=== PATIENT | female | born 1960 | race Hispanic/Latino ===

== ENCOUNTER → 2017-04-18 | Outpatient (CLI) | payer OTHER ==
[~2017-04-18] MED LIST: CITA20TA12 PO; ESTR1TAB24 PO; VALA100033 PO
== END ==
LOC: RAD 08:41
PROVIDERS: ATTEND Family Medicine
DX: Z12.31 Encounter for screening mammogram for malignant neoplasm of breast (principal)
CPT/HCPCS: 77067

== ENCOUNTER → 2018-05-21 | Outpatient (CLI) | payer OTHER ==
--- NOTE | 2018-05-21 13:08 | Diagnostic Imaging Report ---
INDICATION: Routine screening. Comparison is made with prior mammograms from 04/18/2017 and 04/05/2016. 2-D and 3-D bilateral screening mammography was performed with computer-aided detection (CAD) system. FINDINGS: Scattered fibroglandular densities are identified bilaterally. The parenchymal pattern is stable. No dominant mass or malignant-appearing microcalcifications are seen. The axillae are unremarkable. IMPRESSION: No mammographic features suspicious for malignancy are identified. ACR BI-RADS Category 1: Negative. Result letter will be mailed to the patient. Note: At least 10% of breast cancer is not imaged by mammography. Dictated by: Dictated on workstation # [id number]
== END ==
LOC: RAD 08:57
PROVIDERS: ATTEND Family Medicine
DX: Z12.31 Encounter for screening mammogram for malignant neoplasm of breast (principal)
CPT/HCPCS: 77067

== ENCOUNTER → 2020-04-20 | Outpatient (CLI) | payer BC, OTHER ==
--- NOTE | 2020-04-20 14:49 | Diagnostic Imaging Report ---
INDICATION: Routine screening. COMPARISON: 05/21/2018 and 04/18/2017. TECHNIQUE: 2D and 3D bilateral screening mammography was performed with CAD. FINDINGS: Scattered fibroglandular densities are identified bilaterally. The parenchymal pattern is stable. No mass or malignant appearing microcalcifications are seen. The axillae are unremarkable. IMPRESSION: No mammographic features suspicious for malignancy are identified. ACR BI-RADS Category 1: Negative. Result letter will be mailed to the patient. Note: At least 10% of breast cancer is not imaged by mammography. Dictated by: Dictated on workstation # [id number]
== END ==
LOC: RAD 10:30
PROVIDERS: ATTEND Family Medicine
DX: Z12.31 Encounter for screening mammogram for malignant neoplasm of breast (principal)
CPT/HCPCS: 77063; 77067

== ENCOUNTER 2020-05-14 07:12 | Emergency (ER) | payer BC ==
[~2020-05-14] VITALS: Ht 157.5 cm; Wt 57.1 kg
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
[2020-05-14 08:34] VITALS: BP 132/78
== END 2020-05-14 08:34 | disposition home or self-care (01) ==
LOC: EDUNIT# 07:12 → ER 07:14
DX: S06.0X0A Concussion without loss of consciousness, initial encounter (principal); S80.212A Abrasion, left knee, initial encounter; M79.18 Myalgia, other site; R40.2410 Glasgow coma scale score 13-15, unspecified time; Z88.5 Allergy status to narcotic agent; V13.4XXA Pedal cycle driver injured in collision with car, pick-up truck or van in traffic accident, initial encounter
CPT/HCPCS: 70450; 72125

== ENCOUNTER 2021-11-18 13:29 | Emergency (ER) | payer BC ==
[~2021-11-18] VITALS: Ht 157 cm; Wt 54.0 kg
--- NOTE | 2021-11-18 13:58 | ED EENT ---
History of Present Illness General Chief Complaint: Facial Problems Stated Complaint: BLOOD BLISTER, FACIAL SWELLING Nursing Triage Note: PT STATES SHE HAD A BLOOD BLISTER IN HER MOUTH ON THE LEFT CHEEK, SHE BROKE THE BLISTER AND HER WHOLE LEFT CHEEK SWOLE UP SOON SHE POPPED IT. 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 DOES HAVE A HX OF THIS HAPPENING IN THE PAST. Source: patient Exam Limitations: no limitations History of Present Illness Date Seen by Provider: November 18, 2021 Time Seen by Provider: 13:56 Initial Comments Patient is a 61-year-old female who presents ED with a large hematoma and on the left side of her inner mouth. She states about 45 minutes ago she noticed a small blister. She made a small pinpoint incision with some drainage. She stated immediately afterwards the face became swollen and a larger hematoma. She states she has had these blisters for some time and she typically drains them herself but never as large as today. She denies any difficulty breathing but she does have some pain with swallowing. She noticed episodes where she has some difficulty swallowing especially on the left side of the neck. She states she has to force food down. No known vascular disease, blood disorders, family blood disorders. Denies fever, chest pain, shortness of breath, cough, headache, dizziness Allergies and Home Medications Allergies Coded Allergies: Codeine (Unverified Adverse Reaction, Mild, NAUSEA, 07/28/09) Patient Home Medication List Home Medication List Reviewed: Yes Citalopram Hydrobromide (Celexa) 20 Mg Tablet, 20 MG PO DAILY, (Reported) Entered as Reported by: KEMI KESSLER on 03/20/14 152 Estradiol (Estradiol) 1 Mg Tablet, 1 MG PO DAILY, (Reported) Entered as Reported by: KEMI KESSLER on 03/20/14 152 Valacyclovir Hcl (Valtrex) 1,000 Mg Tablet, 1,000 MG PO DAILY, (Reported) Entered as Reported by: KEMI KESSLER on 03/20/14 152 Review of Systems Review of Systems Constitutional: No chills, No fever, No malaise Eyes: Denies Blurred Vision, Denies Drainage, Denies Decreased Acuity Ears: Denies Dizziness, Denies Pain Nose: denies clots, denies congestion Mouth: pain, swelling, bloody discharge Throat: denies swelling; painful swallowing Respiratory: No cough, No short of breath Cardiovascular: No chest pain Gastrointestinal: No abdominal pain, No diarrhea, No nausea, No vomiting Musculoskeletal: No back pain, No joint pain Skin: No change in color, No change in hair/nails All Other Systems Reviewed Negative Unless Noted: Yes Past Yfucboc-Xkogmg-Ehfcdg Hx Patient Social History Tobacco Use?: Yes Smoking Status: Former Smoker Substance use?: No Alcohol Use?: No Immunizations Up To Date Tetanus Booster (TDap): Less than 5yrs PED Vaccines UTD: Yes 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 oz. 54.624237sr; 21.00 BMI Method: General Appearance: WD/WN, no apparent distress Eyes: bilateral eye normal inspection, bilateral eye PERRL, bilateral eye EOMI, bilateral eye abnormal pupil Ears: bilateral ear auricle normal, bilateral ear canal normal, bilateral ear TM normal Nose: normal inspection Mouth/Throat: other (Golf ball sized hematoma of the left inner cheek. Mild bleeding. Airway patent. Oropharynx patent.) Neck: supple, lymphadenopathy (L); No tender midline; other (Left sided lower neck tenderness with mild) Cardiovascular: regular rate, rhythm, no edema, no gallop, no JVD Respiratory: chest non-tender, lungs clear, normal breath sounds, no respiratory distress, no accessory muscle use Gastrointestinal: normal bowel sounds, non tender, soft, no organomegaly, no pulsatile mass Progress/Results/Core Measures Results/Orders Lab Results Laboratory Tests Test 11/18/21 14:00 Range/Units White Blood Count 5.6 4.3-11.0 10^3/uL Red Blood Count 4.58 3.80-5.11 10^6/uL Hemoglobin 14.2 11.5-16.0 g/dL Hematocrit 43 35-52 % Mean Corpuscular Volume 94 80-99 fL Mean Corpuscular Hemoglobin 31 25-34 pg Mean Corpuscular Hemoglobin Concent 33 32-36 g/dL Red Cell Distribution Width 12.7 10.0-14.5 % Platelet Count 222 130-400 10^3/uL Mean Platelet Volume 10.6 9.0-12.2 fL Immature Granulocyte % (Auto) 0 % Neutrophils (%) (Auto) 64 42-75 % Lymphocytes (%) (Auto) 25 12-44 % Monocytes (%) (Auto) 10 0-12 % Eosinophils (%) (Auto) 0 0-10 % Basophils (%) (Auto) 1 0-10 % Neutrophils # (Auto) 3.6 1.8-7.8 10^3/uL Lymphocytes # (Auto) 1.4 1.0-4.0 10^3/uL Monocytes # (Auto) 0.6 0.0-1.0 10^3/uL Eosinophils # (Auto) 0.0 0.0-0.3 10^3/uL Basophils # (Auto) 0.0 0.0-0.1 10^3/uL Immature Granulocyte # (Auto) 0.0 0.0-0.1 10^3/uL Prothrombin Time 13.3 12.2-14.7 SEC INR Comment 1.0 0.8-1.4 Activated Partial Thromboplast Time 32 24-35 SEC Sodium Level 139 135-145 MMOL/L Potassium Level 3.7 3.6-5.0 MMOL/L Chloride Level 100 98-107 MMOL/L Carbon Dioxide Level 28 21-32 MMOL/L Anion Gap 11 5-14 MMOL/L Blood Urea Nitrogen 7 7-18 MG/DL Creatinine 0.62 0.60-1.30 MG/DL Estimat Glomerular Filtration Rate 101 BUN/Creatinine Ratio 11 Glucose Level 103 70-105 MG/DL Calcium Level 9.3 8.5-10.1 MG/DL Corrected Calcium 8.9 8.5-10.1 MG/DL Total Bilirubin 0.4 0.1-1.0 MG/DL Aspartate Amino Transf (AST/SGOT) 22 5-34 U/L Alanine Aminotransferase (ALT/SGPT) 18 0-55 U/L Alkaline Phosphatase 67 40-136 U/L Total Protein 7.6 6.4-8.2 GM/DL Albumin 4.5 3.2-4.5 GM/DL My Orders Orders - ANUM PINEDA Cbc With Automated Diff (11/18/21 13:54) Comprehensive Metabolic Panel (11/18/21 13:54) Partial Thromboplastin Time (11/18/21 13:54) Protime With Inr (11/18/21 13:54) Vital Signs/I&O 11/18/21 11/18/21 13:36 14:53 Temp 36.4 36.4 Pulse 108 82 Resp 20 18 B/P (MAP) 170/108 (128) 163/92 Pulse Ox 98 98 O2 Delivery Room Air Room Air Blood Pressure Mean: 128 Departure Communication (PCP) Patient has a history of these oral lesions (blood blister) which typically rupture on their own or with poking the lesion at home. After rupturing this oral lesion today it grew large which has not in the past. This was noted on initial exam with a large hematoma to the left buccal mucosal.. She had some appear to be mild bleeding on the inferior side of this large hematoma. Appears to be the size bigger than a golf ball. She states it feels like it is getting smaller at times but then continues to increase in size. Concerning for a potential a vascular malformation. If attempted to drain this may increase in s ize compromising airway. She states she has had hemoptysis in the past. . She states sometimes she has difficulty swallowing feels like something gets stuck in her throat more notable on the left side of her neck. She does appear to have a possible lymph node to this side. No enlargement of the thyroid.. Initially lab work was drawn and CT of the neck. Initially discussed patient with Dr. Roman who is not currently in the area. He did suggest possible drainage. My concern if this continues to bleed or potentially tracks further into the throat or neck resulting in airway compromise. This does not appear on initial exam appears to be more localized to the buccal mucosal. discussed with Dr. Landon ENT at [facility] who recommends transfer. Patient is not on any blood thinners. No known blood disorders. Lung sounds clear bilateral. Tolerating secretions. She refused EMS transport. She states she has a friend who will take her directly to the ER by POV. Discussed the risk and she acknowledges. Patient was discussed with Dr. Camarillo accepting ER physician after consulting ENT Patient with normal hemoglobin and coags. Impression Primary Impression: Oral lesion Disposition: 62 DISC/XFER TO IRF Condition: Stable Transfer Transfer Reason: Exceeds level of care Time Spoke to Accepting Phy: 14:30 Transfer Progress Notes Discuss patient with DR. Camarillo ER Physician At [facility] who accepts patient in the ED. patient was discussed with Dr. Tilley ENT at [facility]. Who recommends transfer to the ER and will be evaluated in the ER. Transfer Time: 14:30 Transfer Facility: [facility] Method of Transfer: Private Vehicle Departure-Patient Inst. Decision time for Depature: 14:40 Referrals: SHENG BETTENCOURT MD (PCP/Family) Primary Care Physician Patient Instructions: Mouth Sores (DC) Add. Discharge Instructions: Go directly to [facility] ER All discharge instructions reviewed with patient and/or family. Voiced understanding. ANUM PINEDA November 18, 2021 13:57
[2021-11-18 14:22] LABS: BASOPHILS % (AUTO) 1 % (0-10); EOSINOPHILS % (AUTO) 0 % (0-10); HEMATOCRIT 43 % (35-52); HEMOGLOBIN 14.2 g/dL (11.5-16.0); LYMPHOCYTES # (AUTO) 1.4 10^3/uL (1.0-4.0); LYMPHOCYTES % (AUTO) 25 % (12-44); MEAN CORPUSCULAR HEMOGLOBIN 31 pg (25-34); MEAN CORPUSCULAR HGB CONC 33 g/dL (32-36); MEAN CORPUSCULAR VOLUME 94 fL (80-99); MEAN PLATELET VOLUME 10.6 fL (9.0-12.2); MONOCYTES # (AUTO) 0.6 10^3/uL (0.0-1.0); MONOCYTES % (AUTO) 10 % (0-12); NEUTROPHILS # (AUTO) 3.6 10^3/uL (1.8-7.8); NEUTROPHILS % (AUTO) 64 % (42-75); PLATELET COUNT 222 10^3/uL (130-400); WHITE BLOOD COUNT 5.6 10^3/uL (4.3-11.0)
[2021-11-18 14:39] LABS: ALBUMIN 4.5 GM/DL (3.2-4.5); POTASSIUM 3.7 MMOL/L (3.6-5.0)
[2021-11-18 14:40] LABS: CALCIUM 9.3 MG/DL (8.5-10.1)
[2021-11-18 14:41] LABS: TOTAL PROTEIN 7.6 GM/DL (6.4-8.2)
[2021-11-18 14:43] LABS: BILIRUBIN,TOTAL 0.4 MG/DL (0.1-1.0)
[2021-11-18 14:45] LABS: CREATININE SERUM 0.62 MG/DL (0.60-1.30)
[2021-11-18 14:46] LABS: PROTHROMBIN TIME PATIENT 13.3 SEC (12.2-14.7)
[2021-11-18 14:53] VITALS: BP 163/92
== END 2021-11-18 14:53 ==
LOC: EDUNIT# 13:29 → ER 13:31
DX: K13.70 Unspecified lesions of oral mucosa (principal)
CPT/HCPCS: 36415; 80053; 85025; 85610; 85730